=== PATIENT | female | born 1985 | race African-American/Black ===

== ENCOUNTER 2018-11-07 14:39 | Emergency (ER) | payer OTHER, SELFPAY ==
[~2018-11-07] VITALS: Ht 167.6 cm; Wt 82.0 kg
[2018-11-07 16:01] LABS: CHLORIDE 106 mEq/L (98-107)
[2018-11-07 16:05] LABS: BASOPHILS % 0.3 % (0.0-2.0); EOSINOPHILS % 0.2 % (0.0-5.0); ETHANOL BLOOD < 10 mg/dL; HEMATOCRIT. 36.8 % (36.0-48.0); LYMPHOCYTES % 17.9 % (20.0-50.0); MEAN CORPUSCULAR HEMOGLOBIN 28.3 pg (28.0-32.0); MEAN CORPUSCULAR VOLUME 86.7 fL (81.0-99.0); MEAN PLATELET VOLUME 9.2 fl (7.4-10.4); MONOCYTES % 10.3 % (2.0-8.0); NEUTROPHILS % 71.3 % (40.0-76.0); PLATELET 229 x1000/uL (130-400); RED BLOOD CELL COUNT 4.24 mill/uL (4.2-5.4); RED CELL DISTRIBUTION WIDTH 13.3 % (11.6-14.6)
[2018-11-07] MEDS ORDERED: LORAZEPAM 2MG/ML CPJ IM ONE ×2 (16:30→17:30)
[2018-11-07] MEDS ORDERED: HALOPERIDOL LACTATE 5MG/ML VIAL IM ONE (16:30)
[2018-11-07] MEDS ORDERED: DIPHENHYDRAMINE 50MG/ML VIAL IM ONE (17:30)
[2018-11-07] MEDS ORDERED: LORAZEPAM 2MG/ML CPJ IM NR (18:30)
[2018-11-07 19:16] LABS: CLARITY URINE TURBID (CLEAR); COLOR URINE DARK YELLOW (YELLOW); KETONES URINE 2+ (NEGATIVE); LEUKOCYTE ESTERASE URINE TRACE (NEGATIVE); NITRITE URINE NEGATIVE (NEGATIVE); OCCULT BLOOD URINE NEGATIVE (NEGATIVE); PH URINE 5.5 (4.5-8.0); PROTEIN URINE 1+ (NEGATIVE); SPECIFIC GRAVITY URINE 1.039 (1.005-1.030)
[2018-11-07 19:39] LABS: *BARBITURATES SCREEN URINE NEGATIVE (NEGATIVE); *BENZODIAZEPINES SCREEN URINE NEGATIVE (NEGATIVE); OPIATES URINE SCREEN NEGATIVE (NEGATIVE); PHENCYCLIDINE URINE SCREEN NEGATIVE (NEGATIVE)
[2018-11-07 20:04] LABS: METHADONE URINE SCREEN NEGATIVE (NEGATIVE)
[2018-11-07 20:09] LABS: *AMPHETAMINES SCREEN URINE PRESUMTIVE POSITIVE (NEGATIVE); *COCAINE SCREEN URINE PRESUMTIVE POSITIVE (NEGATIVE); CANNABINOID URINE SCREEN PRESUMTIVE POSITIVE (NEGATIVE)
[2018-11-08 06:00] VITALS: BP 145/71
== END 2018-11-08 07:46 | disposition left against medical advice (07) ==
LOC: ER 14:39
DX: F19.159 Other psychoactive substance abuse with psychoactive substance-induced psychotic disorder, unspecified (principal); R44.3 Hallucinations, unspecified; R41.82 Altered mental status, unspecified; F15.10 Other stimulant abuse, uncomplicated; F14.10 Cocaine abuse, uncomplicated; F12.10 Cannabis abuse, uncomplicated; R45.1 Restlessness and agitation
CPT/HCPCS: 36415; 80053; 80305; 81003; 81025; 85025; 96372; 99283; J1200; J1630; J2060; Z7610